=== PATIENT | female | born 1930 | race Caucasian/White ===

== ENCOUNTER → 2017-08-26 | Day surgery (SDC) | payer MEDICARE, BC ==
[~2017-08-26] MED LIST: ACIDOPHILUS1 EAC2 PO; AMLODIPINE BESY10 MG PO; AMOXICILLIN 50500 MG PO; APAP500 PO; ASPIR 8181 M1 PO; AUGMENTIN 500-1 EACH PO; BACTRIM DS TAB1 EACH PO; BIOFREEZE118 ML TOP; CALCIUM 600 +1 EAC1 PO; CARVEDILOL12.5 MG PO; CLOBETASOL PROP50 M1 TOP; COLACE 100 MG100 MG PO; COREG12.5 MG PO; COZAAR 50 MG TA50 M2 PO; DIGOXIN250 MCG PO; DOXYCYCLINE 10100 MG PO; DULCOLAX5 MG PO; ECOTRIN325 MG PO; FISH OIL 1,001000 M2 PO; FLORASTOR250 MG PO; FUROSEMIDE 40 M40 M1 PO; HUMALOG100 UNIT/1 SUBQ; HUMALOG100 UNIT/2 SQ; JUVEN PACKET1 EACH PO; KEFLEX500 M1 PO; LEVAQUIN 500 M500 M2 PO; LEVEMIR SUBQ; LEVOTHYROXIN0.075 MG PO; LEVOTHYROXINE 0.1 MG PO; LISINOPRIL5 MG PO; MAGOX 400400 MG PO; MELATONIN5 M1 PO; METAMUCIL PAC1 UDPKT PO; MIRALAX17 GM PO; MUCINEX DM TABL1 TA1 PO; MURO-12815 ML/BOT OPHTHALMIC; NITROGLYCERIN0.4 MG SUBLING; NORVASC10 MG PO; NOVOLOG100 UNIT/1 SUBQ; NYAMYC15 GM TOP; OXYGEN INH; OXYGEN MISCELL; PAXIL10 MG; TRAMADOL 50 MG50 MG PO; TYLENOL EXTRA500 MG PO; UNICOMPLEX M TA1 TA1 PO; VANCOMYCIN5 GM/VIAL PO; VITAMIN D1000 UNI1 PO; VITAMIN D2000 UNIT PO; VITAMINC500 PO; ZOCOR20 MG PO
[2017-08-26 06:29] LABS: HEMATOCRIT 37.9 % (37.0-47.0); HEMOGLOBIN 12.4 gm/dL (12.0-15.0); MCH 27.5 pg (26.0-34.0); MCHC 32.8 g/dL (28.0-37.0); MCV 83.9 fL (80.0-100.0); MPV 7.9 fl. (7.2-11.1); RBC 4.52 mil/uL (4.20-5.00); RDW-CV 18.1 % (10.5-14.5); WBC 7.7 thou/uL (4.0-11.0)
[2017-08-26 06:36] LABS: CALCIUM 9.5 mg/dL (8.5-10.1); CREATININE 0.7 mg/dL (0.6-1.3); POTASSIUM 3.8 mmol/L (3.5-5.1)
[2017-08-26 06:41] LABS: TOTAL BILIRUBIN 0.5 mg/dL (<0.1-1.0); TOTAL PROTEIN 7.1 g/dL (6.4-8.2)
--- NOTE | 2017-08-26 10:39 | NUR ---
WOUND CARE NOTE: WAS CALLED TO PACU POST DEBRIDEMENT OF WOUND. PATIENT WITH WOUND VAC PLACED, BUT NO HOME VAC TO SEND PATIENT HOME WITH. SPOKE WITH DR. CASTRO ON SITUATION, HE HAD WRITTEN ORDERS FOR A VAC TO BE ORDERED FOR SCHEDULED DEBRIDEMENT TODAY. [facility], BUT WAS TRANSFERRED TO WRONG PLACE X2. SPOKE WITH POST ACUTE LIAISON ON SITUATION AND WAS ABLE TO SPEAK WITH [facility]. SPOKE WITH DR. CASTRO AND OBTAINED FURTHER NPWT CLARIFICATION AND GAVE ORDERS TO LIAISON TO ASSIST WITH OBTAINING NPWT. NOTIFIED DR. CASTRO OF NOT HAVING THE SNF'S WOUND VAC IN HOUSE. HE WAS OK WITH REMOVING THE VAC AND PACKING WITH PURACHOL UNTIL THEY COULD PLACE IT AT THE FACILITY. WOUND VAC REMOVED. PACKED WITH 3 PURACHOL AG PLUS AND SECURED WITH BORDERED FOAM. PLACED VAC INTO SOILED UTILITY. UPDATED PACU NURSE ON DISCUSSIONS WITH DR. CASTRO AND LIAISON. PATIENT TOLERATED DRESSING CHANGE WELL.
--- NOTE | 2017-09-16 08:11 | H ---
[place] [address] HISTORY AND PHYSICAL Name: MANUEL GOLDSTEIN Room: [facility]#: [id number] Admission: 08/26/17 Attend Phys: Maricruz Ruiz MD Discharge: Date of : 11/11/[birth year] Report #: [id number] THIS REPORT FOR: //name// CC: Tim Ruiz DATE OF SERVICE: 08/26/2017 ADMITTING DIAGNOSIS: Necrotic gluteal decubitus ulcer. HISTORY OF PRESENT ILLNESS: The patient is an 86-year-old female who presented to [facility] to Dr. Harley and had a pressure ulcer on the left gluteal buttock area and it was in need of operative surgical debridement and wound VAC placement, which could not be performed in the clinic, so she is being prepared for surgery in the operating room. OTHER SIGNIFICANT MEDICAL HISTORY: Congestive heart failure, AFib, coronary artery disease and renal disease. PAST SURGICAL HISTORY: Includes a pacemaker and a coronary artery bypass graft. MEDICATIONS: Her list of medications: Coreg, Ecotrin, Florastor, simvastatin, lisinopril, amlodipine, Lanoxin, insulin, Levemir, fish oil, Lasix, multivitamins, melatonin, zinc oxide ointment, Nitrostat and she was getting Santyl dressings. PHYSICAL EXAMINATION: GENERAL: She is an elderly female in no acute distress. HEAD, EARS, EYES, NOSE AND THROAT: Unremarkable. There were no lesions. NECK: Supple, with no lymphadenopathy. LUNGS: Clear, unlabored. CARDIAC: There is no gallop or murmur. ABDOMEN: Soft, nontender. On her buttock on the left side, there is an open ulcerative wound 3.5 cm in length, 3 cm in width and approximately 2 cm in depth with necrotic tissue, slough, muscle and tendon exposed. EXTREMITIES: No varicosities. No pitting edema. IMPRESSION: Pressure ulcer of the left buttocks with necrotic tissue. PLAN: For surgical debridement and placement of a wound VAC. The patient's son was there for the description of the surgery. I [place] [address] HISTORY AND PHYSICAL Name: MANUEL GOLDSTEIN Room: [facility]#: [id number] Admission: 08/26/17 Attend Phys: Maricruz Ruiz MD Discharge: Date of : 11/11/28 Report #: [id number] benefits of the surgery and answered their questions and they understand and wish to proceed. <ELECTRONICALLY SIGNED> By: Maricruz Ruiz MD 09/16/17 0811 1203 [id number] Ruiz MD /nt
--- NOTE | 2017-09-16 08:11 | OP ---
[address] [address] OPERATIVE REPORT Name: MANUEL GOLDSTEIN Room: [facility]#: [id number] Admission: 08/26/17 Attend Phys: Maricruz Ruiz MD Discharge: Date of : [birth year]/11/[birth year] Report #: [id number] THIS REPORT FOR: //name// CC: Tim Ruiz DATE OF SERVICE: 08/26/2017 PREOPERATIVE DIAGNOSIS: Left gluteal pressure ulcer, dimension is 2.5 x 2.5 x 1.5 cm. POSTOPERATIVE DIAGNOSIS: Left gluteal pressure ulcer, dimension is 2.5 x 2.5 x 1.5 cm. OPERATIVE PROCEDURE: Excisional debridement down to and including tendon of the left gluteal wound after debridement measurements 2.5 x 2.5 x 2 cm. Placement of KCI wound VAC. ANESTHESIA: General endotracheal. OPERATIVE FINDINGS: Necrotic subcutaneous fat and muscle and tendon. DESCRIPTION OF PROCEDURE: After the patient was placed under general endotracheal anesthesia, the patient was placed in a prone position and the left gluteal ____ including ulcer was carefully prepped with Betadine and draped in a sterile fashion. Timeout taken. 1 gram of Ancef was administered. I began with pickups and a #15 scalpel blade, began sharply debriding the edges of the wound bed and debrided down into the ulcer crater, necrotic subcutaneous fat, necrotic muscle and tendon were debrided out of the wound back to healthy bleeding tissue. 100% of the wound bed was debrided and bleeding was controlled with cautery. Once we irrigated the wound with saline, the KCI VAC sponge was brought onto the field, cut to fit the wound bed and packed accordingly and sealed with plastic draping and placed on negative pressure with good seal. Estimated blood loss 1 mL. All sponge, instrument counts correct. The patient was extubated, returned to the PACU in satisfactory condition. <ELECTRONICALLY SIGNED> By: Maricruz Ruiz MD 09/16/1711 0 0840Maricruz Ruiz MD /nt
== END | disposition home or self-care (01) ==
LOC: M.SUR 05:56
PROVIDERS: Surgery
DX: L89.323 Pressure ulcer of left buttock, stage 3 (principal); L89.329 Pressure ulcer of left buttock, unspecified stage; I50.9 Heart failure, unspecified; I48.91 Unspecified atrial fibrillation; I25.10 Atherosclerotic heart disease of native coronary artery without angina pectoris; N28.9 Disorder of kidney and ureter, unspecified; Z79.4 Long term (current) use of insulin; Z95.1 Presence of aortocoronary bypass graft; Z79.899 Other long term (current) drug therapy

== ENCOUNTER → 2017-10-29 | Outpatient (CLI) | payer MEDICARE, BC ==
[~2017-10-29] VITALS: Ht 172.7 cm; Wt 68.0 kg
[2017-10-29 10:37] VITALS: BP 101/48
== END ==
LOC: M.WC 00:04 → M.ERS 00:04 → M.WC 09:00
DX: L03.211 Cellulitis of face (principal); I50.9 Heart failure, unspecified; I48.91 Unspecified atrial fibrillation; I25.10 Atherosclerotic heart disease of native coronary artery without angina pectoris; I25.2 Old myocardial infarction; Z95.0 Presence of cardiac pacemaker; Z95.1 Presence of aortocoronary bypass graft

== ENCOUNTER → 2017-11-04 | Outpatient (CLI) | payer MEDICARE, BC ==
--- NOTE | 2017-11-06 16:04 | CON ---
[address] [address] CONSULTATION Name: MANUEL GOLDSTEIN Room: [facility] Jayant#: [id number] Admission: 11/04/17 Attend Phys: Maricruz Ruiz MD Discharge: Date of : 11/11/[birth year] Report #: [id number] THIS REPORT FOR: //name// CC: Tim Ruiz DATE OF SERVICE: 11/06/2017 ATTENDING PHYSICIAN: Maricruz Ruiz MD Seen at the wound care center at [facility] for left ischial ulceration. Chart reviewed, the patient examined. The patient returns today in followup for ongoing care for left ischial ulceration. She states overall there is a little change from her standpoint. The degree of pain and discomfort has been moderate. She is able to offload the site. She denies any fevers or chills. On examination, the wound appears to have somewhat less depth. On probing, there is no exposed or bone that is apparent exposed the wound. Left ischial decubitus ulcer. We will continue current approach from an infectious standpoint. She has been on some systemic antibiotics, had a diagnosis with a facial cellulitis for which she has been on trimethoprim and sulfamethoxazole as well as cephalexin, complete fairly short period of time and optimize her nutritional status, offload the site. We would see her back in 2 weeks. <ELECTRONICALLY SIGNED> By: Jonh Rose MD 11/06/17 1604 0645 [id number] kristen Hicks
== END ==
LOC: M.WC 00:58
DX: L89.323 Pressure ulcer of left buttock, stage 3 (principal); L03.211 Cellulitis of face; R21 Rash and other nonspecific skin eruption; I50.9 Heart failure, unspecified; I48.91 Unspecified atrial fibrillation; I25.10 Atherosclerotic heart disease of native coronary artery without angina pectoris; I25.2 Old myocardial infarction; Z87.891 Personal history of nicotine dependence; Z95.1 Presence of aortocoronary bypass graft

== ENCOUNTER → 2017-11-18 | Outpatient (CLI) | payer MEDICARE, BC ==
--- NOTE | 2017-11-20 11:57 | CON ---
[address] [address] CONSULTATION Name: MANUEL GOLDSTEIN Room: [facility] Mullins#: [id number] Admission: 11/18/17 Attend Phys: Maricruz Ruiz MD Discharge: Date of : 11/11/[birth year] Report #: [id number] THIS REPORT FOR: //name// CC: Tim Ruiz DATE OF SERVICE: 11/18/2017 ATTENDING PHYSICIAN: Dr. Maricruz Ruiz. REASON FOR EVALUATION: Followup ischial wound complicated by infection. She returns in followup having been seen roughly 3 weeks ago. At that point, she had ongoing issues with eye infection. She was prescribed antibiotics consisting of Bactrim as well as cephalexin. She has completed that course and subsequently has cleared the infection related to her eye and ongoing wound care with the ischial site. On examination, there is very little inflammation superficially. On probing, it does extend up to 3 cm, although there is no evidence of exposed bone at this point. She generally states she feels fair although remains weak. Her appetite is still only fair. Chronic ischial wound. At this point, we will not extend the antibiotics. I did instruct her to call if she thought there was any concern about relapsing or recurrent infection at this point. I did discuss with Dr. Ruiz who was in agreement. We will be available as needed. <ELECTRONICALLY SIGNED> By: Jonh Rose MD 11/20/17 1157 1552 [id number] Rose MD /raquel
== END ==
LOC: M.WC 01:22
DX: L89.323 Pressure ulcer of left buttock, stage 3 (principal); R21 Rash and other nonspecific skin eruption; I50.9 Heart failure, unspecified; I48.91 Unspecified atrial fibrillation; I25.10 Atherosclerotic heart disease of native coronary artery without angina pectoris; I25.2 Old myocardial infarction; Z87.891 Personal history of nicotine dependence; Z95.1 Presence of aortocoronary bypass graft; Z95.0 Presence of cardiac pacemaker

== ENCOUNTER → 2017-11-25 | Outpatient (CLI) | payer MEDICARE, BC | LOC: M.WC 00:58 | DX: L89.323 Pressure ulcer of left buttock, stage 3 (principal); I50.9 Heart failure, unspecified; I48.91 Unspecified atrial fibrillation; I25.10 Atherosclerotic heart disease of native coronary artery without angina pectoris; I25.2 Old myocardial infarction; Z87.891 Personal history of nicotine dependence; Z95.1 Presence of aortocoronary bypass graft; Z95.0 Presence of cardiac pacemaker ==

== ENCOUNTER → 2017-12-02 | Outpatient (CLI) | payer MEDICARE, BC | LOC: M.WC 09:00 | DX: L89.323 Pressure ulcer of left buttock, stage 3 (principal); I50.9 Heart failure, unspecified; I48.91 Unspecified atrial fibrillation; I25.10 Atherosclerotic heart disease of native coronary artery without angina pectoris; I25.2 Old myocardial infarction; Z87.891 Personal history of nicotine dependence; Z95.1 Presence of aortocoronary bypass graft; Z95.0 Presence of cardiac pacemaker ==

== ENCOUNTER → 2017-12-09 | Outpatient (CLI) | payer MEDICARE, BC | LOC: M.WC 00:53 | DX: L89.323 Pressure ulcer of left buttock, stage 3 (principal); R21 Rash and other nonspecific skin eruption; I50.9 Heart failure, unspecified; I48.91 Unspecified atrial fibrillation; I25.2 Old myocardial infarction; Z87.891 Personal history of nicotine dependence; Z95.1 Presence of aortocoronary bypass graft ==

== ENCOUNTER → 2017-12-16 | Outpatient (CLI) | payer MEDICARE, BC ==
[2017-12-16 10:31] LABS: ABSOLUTE EOSINOPHILS 0.1 thou/uL (0.0-0.7); ABSOLUTE LYMPHOCYTES 0.7 thou/uL (0.8-5.3); ABSOLUTE MONOCYTES 0.9 thou/uL (0.0-1.2); HEMOGLOBIN 10.4 gm/dL (12.0-15.0); WBC 5.3 thou/uL (4.0-11.0)
[2017-12-16 10:34] LABS: ABSOLUTE BASOPHILS 0.1 thou/uL (0.0-0.2); ABSOLUTE NEUTROPHILS 3.5 thou/uL (1.6-8.1); HEMATOCRIT 31.1 % (37.0-47.0); LYMPHOCYTES 13.8 %; MCHC 33.5 g/dL (28.0-37.0); MCV 83.7 fL (80.0-100.0); MPV 8.2 fl. (7.2-11.1); NUCLEATED RBCS 0 /100WBC; PLATELET COUNT* 256 thou/uL (150-400); POLYS 66.2 %; RBC 3.71 mil/uL (4.20-5.00)
[2017-12-16 10:36] LABS: CALCIUM 8.7 mg/dL (8.5-10.1); CREATININE 0.8 mg/dL (0.6-1.3); POTASSIUM 3.8 mmol/L (3.5-5.1)
[2017-12-16 11:34] LABS: ESR (SEDRATE) 52 mm/hr (0-30)
== END ==
LOC: M.WC 01:51
PROVIDERS: Surgery
DX: L89.323 Pressure ulcer of left buttock, stage 3 (principal); R21 Rash and other nonspecific skin eruption; I50.9 Heart failure, unspecified; I48.91 Unspecified atrial fibrillation; I25.10 Atherosclerotic heart disease of native coronary artery without angina pectoris; I25.2 Old myocardial infarction; Z87.891 Personal history of nicotine dependence; Z95.1 Presence of aortocoronary bypass graft; Z95.0 Presence of cardiac pacemaker

== ENCOUNTER → 2017-12-23 | Outpatient (CLI) | payer MEDICARE, BC ==
--- NOTE | 2017-12-25 12:12 | CON ---
[address] [address] CONSULTATION Name: MANUEL GOLDSTEIN Room: [facility] Jayant#: [id number] Admission: 12/23/17 Attend Phys: Maricruz Ruiz MD Discharge: Date of : [birth year]/11/[birth year] Report #: [id number] THIS REPORT FOR: //name// CC: Joseph Ruiz DATE OF SERVICE: 12/23/2017 ATTENDING PHYSICIAN: Maricruz Ruiz MD REASON FOR EVALUATION: Chronic sacral decubitus ulcer. HISTORY OF PRESENT ILLNESS: The patient returns in followup. She has had a longstanding pressure related sacral ulcer, right side perivertebral site. On examination today, Dr. Ruiz appreciated that although even as recent as last week there was no exposed bone, there is today. He feels the chronicity of the wound suggests probable chronic osteomyelitis. He did do a biopsy of the bone utilizing a rongeur and sent that for culture. Apparently, she is not a candidate for an MRI due to pacemaker. It is notable that she has had some intermittent fevers, although she is afebrile this day. She states her appetite has been only fair. She denies significant amount of pain typically unless it is being debrided. ASSESSMENT AND PLAN: Suspected chronic osteomyelitis. Discussed with Dr. Ruiz. Plan is to go ahead and place a PICC line. We will await culture results, start her on parenteral antimicrobial therapy, do some weekly labs. In the interim, he will continue bedside debridements. There is a real concern that she is significantly high risk surgical candidate. We will see how she progresses clinically. I will see her in 1 week. <ELECTRONICALLY SIGNED> By: Jonh Rose MD 12/25/17 1212 1607 2046Jomalcolm Rose MD /nt
== END ==
LOC: M.WC 01:55
DX: L89.323 Pressure ulcer of left buttock, stage 3 (principal); I50.9 Heart failure, unspecified; I48.91 Unspecified atrial fibrillation; I25.10 Atherosclerotic heart disease of native coronary artery without angina pectoris; I25.2 Old myocardial infarction; Z87.891 Personal history of nicotine dependence; Z95.0 Presence of cardiac pacemaker; Z95.1 Presence of aortocoronary bypass graft

== ENCOUNTER → 2017-12-25 | Outpatient (CLI) | payer MEDICARE, BC ==
[2017-12-25 07:53] VITALS: BP 112/56
[2017-12-25 10:00] VITALS: BP 118/52
--- NOTE | 2017-12-25 12:19 | NUR ---
ARRIVED PER WHEELCHAIR FROM IR POST PICC PLACEMENT. ASSISTED TO RECLINER AND MADE COMFORTABLE. PICC TO LEFT UPPER ARM INTACT AND PATENT. SPOKE WITH DR. GEORGE AND NEW ORDER RECIEVED TO ADMINISTER VANCOMYCIN AND LABS. SPOKE WITH DEVANG AT [facility] AND REPORT GIVE. INFUSION COMPLETED AND TOLERATED WELL. STAFF FROM SNF STAYED [facility] PT DURING INFUSION. DISCHARGE REVIEWED. DENEIS QUESTIONS OR NEEDS AT DISCHARGE.
== END | disposition home or self-care (01) ==
LOC: M.INT 07:11 → M.INFUS 13:00
DX: Z45.2 Encounter for adjustment and management of vascular access device (principal); I48.91 Unspecified atrial fibrillation; Z79.899 Other long term (current) drug therapy; Z79.82 Long term (current) use of aspirin; Z79.4 Long term (current) use of insulin; Z79.01 Long term (current) use of anticoagulants

== ENCOUNTER → 2017-12-30 | Outpatient (CLI) | payer MEDICARE, BC ==
--- NOTE | 2018-01-01 12:11 | CON ---
[address] [address] CONSULTATION Name: MANUEL GOLDSTEIN Room: [facility] Mullins#: [id number] Admission: 12/30/17 Attend Phys: Maricruz Ruiz MD Discharge: Date of : 11/11/[birth year] Report #: [id number] THIS REPORT FOR: //name// CC: Joseph Ruiz DATE OF SERVICE: 12/30/2017 ATTENDING PHYSICIAN: Maricruz Ruiz MD Here for a followup of sacral osteomyelitis, chronic wound. HISTORY OF PRESENT ILLNESS: The patient returns today in followup, having completed about 5 days of parenteral therapy with vancomycin. Previous culture was confirmed to be MRSA. This was a bone biopsy. She apparently is tolerating the treatment without difficulty. At this point, she does admit to some mild decrease in her appetite, which may be secondary to adverse drug effect. Labs are pending. Denies pulmonary or gastrointestinal related complaints. PHYSICAL EXAMINATION: The wound appears to be fairly bland. The superficial opening is smaller, although it opens into a cavity. Its depth is really unchanged, is not overtly inflamed. ASSESSMENT AND PLAN: Chronic osteomyelitis. At this point, we will maintain the current approach. Continue vancomycin, planned 6-week course. We will get typically weekly labs. I will see her in 1 week. <ELECTRONICALLY SIGNED> By: Jonh Rose MD 01/01/18 1211 1527 [id number] Rose MD /raquel
== END ==
LOC: M.WC 00:07
DX: L89.323 Pressure ulcer of left buttock, stage 3 (principal); R21 Rash and other nonspecific skin eruption; I50.9 Heart failure, unspecified; I48.91 Unspecified atrial fibrillation; I25.10 Atherosclerotic heart disease of native coronary artery without angina pectoris; I25.2 Old myocardial infarction; Z87.891 Personal history of nicotine dependence; Z95.1 Presence of aortocoronary bypass graft

== ENCOUNTER → 2018-01-06 | Outpatient (CLI) | payer MEDICARE, BC ==
--- NOTE | 2018-01-08 10:42 | CON ---
[address] [address] CONSULTATION Name: MANUEL GOLDSTEIN Room: [facility] Jayant#: [id number] Admission: 01/06/18 Attend Phys: Maricruz Ruiz MD Discharge: Date of : 11/11/[birth year] Report #: [id number] THIS REPORT FOR: //name// CC: Joseph Ruiz DATE OF SERVICE: 01/06/2018 INFECTIOUS DISEASE CONSULTATION ATTENDING PHYSICIAN: Maricruz Ruiz MD HISTORY OF PRESENT ILLNESS: Here for followup of chronic ulceration, left medial buttock, likely osteomyelitis. The patient returns in followup. She does on a weekly basis ongoing wound care, and roughly 3 weeks ago, did undergo partial bedside ostectomy of the exposed bone, confirmed to have osteomyelitis, has been on parenteral therapy during that interval. At this point, she denies significant amount of pain. The wound itself is only partially less deep, although through probing, it is not clear that there is any exposed bone at this point. ASSESSMENT AND PLAN: Chronic osteomyelitis. We will continue the current approach including the parenteral vancomycin as well as weekly labs at least additional 3 weeks. We will continue to follow on weekly basis. She is seeing Dr. Ruiz who is doing debridements. <ELECTRONICALLY SIGNED> By: Jonh Rose MD 01/08/18 1042 05 [id number] Rose MD /nt
== END ==
LOC: M.WC 04:52
DX: L89.323 Pressure ulcer of left buttock, stage 3 (principal); R21 Rash and other nonspecific skin eruption; I50.9 Heart failure, unspecified; I48.91 Unspecified atrial fibrillation; I25.10 Atherosclerotic heart disease of native coronary artery without angina pectoris; I25.2 Old myocardial infarction; Z87.891 Personal history of nicotine dependence; Z95.1 Presence of aortocoronary bypass graft

== ENCOUNTER → 2018-01-13 | Outpatient (CLI) | payer MEDICARE, BC ==
--- NOTE | 2018-01-15 11:08 | CON ---
[address] [address] CONSULTATION Name: MANUEL GOLDSTEIN Room: [facility] Saba#: [id number] Admission: 01/13/18 Attend Phys: Maricruz Ruiz MD Discharge: Date of : [birth year]/11/[birth year] Report #: [id number] THIS REPORT FOR: //name// CC: Joseph Ruiz DATE OF SERVICE: 01/13/2018 ATTENDING PHYSICIAN: Dr. Maricruz Ruiz. REASON FOR EVALUATION: To follow up sacral decubitus ulcer with suspected osteomyelitis. HISTORY OF PRESENT ILLNESS: Chart reviewed, patient examined. The patient returns in followup. She has been seen on a weekly basis, had started antibiotics roughly 3-4 weeks ago parenterally due to positive culture and probing the wound confirmed bone exposure. This was biopsied. Growth of MRSA. She was placed on vancomycin. She has actually made some progress in terms of the wound, is now a shallow where it has no bone exposed on efforts to probing including multiple persons. She has overall some degree of pain, although it has lessened. She does have some issues with her appetite and certainly raises question of adverse drug effect, but overall she is a little more animated. I was not able to see the wound today since she was already dressed, but per the staff nurse, it had improved appearance and decreased overall inflammation, slightly less drainage. Chronic osteomyelitis. We will continue this approach as prescribed, additional 2-3 weeks. We will see her on a weekly basis. Continue to optimize her nutritional status, offload the site. <ELECTRONICALLY SIGNED> By: Jonh Rose MD 01/15/18 1108 0852 0937Josejamel Rose MD /nt
== END ==
LOC: M.WC 00:48
DX: L89.324 Pressure ulcer of left buttock, stage 4 (principal); L98.411 Non-pressure chronic ulcer of buttock limited to breakdown of skin; R21 Rash and other nonspecific skin eruption; I50.9 Heart failure, unspecified; I48.91 Unspecified atrial fibrillation; I25.10 Atherosclerotic heart disease of native coronary artery without angina pectoris; I25.2 Old myocardial infarction; Z87.891 Personal history of nicotine dependence; Z95.1 Presence of aortocoronary bypass graft; Z95.0 Presence of cardiac pacemaker

== ENCOUNTER → 2018-01-27 | Outpatient (CLI) | payer MEDICARE, BC ==
--- NOTE | 2018-01-29 12:32 | CON ---
[address] [address] CONSULTATION Name: MANUEL GOLDSTEIN Room: [facility] Mullins#: [id number] Admission: 01/27/18 Attend Phys: Maricruz Ruiz MD Discharge: Date of : 11/11/[birth year] Report #: [id number] THIS REPORT FOR: //name// CC: Joseph Ruiz DATE OF SERVICE: 01/27/2018 INFECTIOUS DISEASE CONSULTATION FOLLOWUP ATTENDING PHYSICIAN: Dr. Maricruz Ruiz. REASON FOR EVALUATION: Here for followup of ischial ulcer complicated by exposed bone and likely chronic osteomyelitis. HISTORY OF PRESENT ILLNESS: The patient continues to have evidence of overall deterioration in my estimation. She is less engaged. She denies significant amount of pain to this point. She states her appetite has been poor, not eating. PHYSICAL EXAMINATION: On evaluation of the wound, it actually has minimal inflammation, although on probing, there is concern about possible bone exposure, although there is disagreement. ASSESSMENT AND PLAN: Chronic ischial wound. She has completed roughly 5 weeks of parenteral therapy of the planned 6-week course. We will continue that. Weekly labs. Part of the anorexia may be due to the antibiotics as well; it should be mindful. Likely, we will switch to oral therapy, perhaps more of a chronic suppressive mode. I am not encouraged by likelihood of healing at this point given several factors. <ELECTRONICALLY SIGNED> By: Jonh Rose MD 01/29/18 1232 0916 [id number] Rose MD /raquel
== END ==
LOC: M.WC 01:18
DX: L89.323 Pressure ulcer of left buttock, stage 3 (principal); R21 Rash and other nonspecific skin eruption; I50.9 Heart failure, unspecified; I48.91 Unspecified atrial fibrillation; I25.10 Atherosclerotic heart disease of native coronary artery without angina pectoris; I25.2 Old myocardial infarction; Z87.891 Personal history of nicotine dependence; Z95.1 Presence of aortocoronary bypass graft; Z95.0 Presence of cardiac pacemaker

== ENCOUNTER → 2018-02-03 | Outpatient (CLI) | payer MEDICARE, BC ==
--- NOTE | 2018-02-05 12:25 | CON ---
[address] [address] CONSULTATION Name: MANUEL GOLDSTEIN Room: [facility] Saba#: [id number] Admission: 02/03/18 Attend Phys: Maricruz Ruiz MD Discharge: Date of : 11/11/[birth year] Report #: [id number] THIS REPORT FOR: //name// CC: Joseph Ruiz DATE OF SERVICE: 02/03/2018 ATTENDING PHYSICIAN: Maricruz Ruiz MD Here for followup of chronic ischial ulceration complicated by chronic osteomyelitis. She returns today in followup. She denies significant amount of pain at this point. She has had a diminished appetite overall and some overall general deterioration in her clinical status over the course of the last several months in particular the last few weeks. She has completed 6 weeks of parenteral therapy with vancomycin for culture proven MRSA isolated from a deep culture from the site collected by Dr. Ruiz. On examination, the wound is fairly bland appearing. It is smaller. It is narrow ____ depth and suspect continues to communicate with bone. Chronic osteomyelitis setting involving the ischium. We will transition to oral antibiotics for long-term chronic suppressive care. Ideally, she will tolerate these without significant adverse drug effect. We will have to monitor labs on an intermittent basis. She was encouraged to optimize her nutritional status. She does appreciate the need to again continue work with physical therapy. I did go ahead and remove her PICC line as well. <ELECTRONICALLY SIGNED> By: Jonh Rose MD 02/05/18 1225 0845 [id number] Rose MD /raquel
== END ==
LOC: M.WC 02:07
DX: L89.323 Pressure ulcer of left buttock, stage 3 (principal); I50.9 Heart failure, unspecified; I48.91 Unspecified atrial fibrillation; I25.10 Atherosclerotic heart disease of native coronary artery without angina pectoris; I25.2 Old myocardial infarction; Z87.891 Personal history of nicotine dependence; Z95.1 Presence of aortocoronary bypass graft; Z95.0 Presence of cardiac pacemaker

== ENCOUNTER → 2018-03-03 | Outpatient (CLI) | payer MEDICARE, BC ==
--- NOTE | 2018-03-06 14:38 | CON ---
[address] [address] CONSULTATION Name: MANUEL GOLDSTEIN Room: [facility] Jayant#: [id number] Admission: 03/03/18 Attend Phys: Maricruz Ruiz MD Discharge: Date of : 11/11/[birth year] Report #: [id number] THIS REPORT FOR: //name// CC: Joseph Ruiz DATE OF SERVICE: 03/03/2018 INFECTIOUS DISEASE CONSULTATION DATE OF VISIT TO WOUND CARE CENTER: 03/03/2018. ATTENDING PHYSICIAN: Dr. Maricruz Ruiz. HISTORY OF PRESENT ILLNESS: The patient returns today in followup for chronic ischial ulceration, likely has chronic osteomyelitis, which has overall little change. Denies any systemic illness. It is not clear with her appetite may be it has marginally improved. She has been on essentially chronic suppressive therapy at this point. On examination, the canal is somewhat narrow or it still has a cavity at the base and probably there is exposed bone. 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 We will continue current approach with chronic suppressive therapy. Did discuss with Dr. Ruiz. He noted other option would be to excise the sinus tract and debride the base of the wound including bone; however, if left with a rather large defect, it again would be difficult to heal. Noted she is evidently undernourished, I am not sure that is going to change dramatically at this point. We will see her in 1 month's time. Continue the antibiotic approach. <ELECTRONICALLY SIGNED> By: Jonh Rose MD 03/06/18 1438 1446 [id number] Rose MD /nt
== END ==
LOC: M.WC 00:02
DX: L89.324 Pressure ulcer of left buttock, stage 4 (principal); I50.9 Heart failure, unspecified; I48.91 Unspecified atrial fibrillation; I25.10 Atherosclerotic heart disease of native coronary artery without angina pectoris; I25.2 Old myocardial infarction; R21 Rash and other nonspecific skin eruption; Z87.891 Personal history of nicotine dependence; Z95.1 Presence of aortocoronary bypass graft; Z95.0 Presence of cardiac pacemaker

== ENCOUNTER → 2018-03-31 | Outpatient (CLI) | payer MEDICARE, BC ==
[2018-03-31 09:51] LABS: ABSOLUTE BASOPHILS 0.1 thou/uL (0.0-0.2); ABSOLUTE EOSINOPHILS 0.1 thou/uL (0.0-0.7); ABSOLUTE LYMPHOCYTES 1.1 thou/uL (0.8-5.3); ABSOLUTE MONOCYTES 0.7 thou/uL (0.0-1.2); ABSOLUTE NEUTROPHILS 4.5 thou/uL (1.6-8.1); BASOPHILS 1.1 %; EOSINOPHILS 1.6 %; HEMATOCRIT 36.3 % (37.0-47.0); HEMOGLOBIN 11.9 gm/dL (12.0-15.0); LYMPHOCYTES 16.8 %; MCH 26.2 pg (26.0-34.0); MCHC 32.7 g/dL (28.0-37.0); MCV 80.3 fL (80.0-100.0); MONOCYTES 10.4 %; MPV 9.3 fl. (7.2-11.1); NUCLEATED RBCS 0 /100WBC; PLATELET COUNT* 206 thou/uL (150-400); POLYS 70.1 %; RBC 4.52 mil/uL (4.20-5.00); WBC 6.4 thou/uL (4.0-11.0)
[2018-03-31 09:54] LABS: CALCIUM 9.2 mg/dL (8.5-10.1); CREATININE 0.9 mg/dL (0.6-1.3); POTASSIUM 3.5 mmol/L (3.5-5.1)
[2018-03-31 09:59] LABS: ALBUMIN 2.6 g/dL (3.4-5.0); TOTAL BILIRUBIN 0.5 mg/dL (<0.1-1.0); TOTAL PROTEIN 6.5 g/dL (6.4-8.2)
[2018-03-31 11:31] LABS: ESR (SEDRATE) 34 mm/hr (0-30)
--- NOTE | 2018-04-03 11:52 | CON ---
[address] [address] CONSULTATION Name: MANUEL GOLDSTEIN Room: [facility] Jayant#: [id number] Admission: 03/31/18 Attend Phys: Maricruz Ruiz MD Discharge: Date of : 11/11/[birth year] Report #: [id number] THIS REPORT FOR: //name// CC: Joseph Ruiz DATE OF SERVICE: 03/31/2018 ATTENDING PHYSICIAN: Maricruz Ruiz MD HISTORY OF PRESENT ILLNESS: Here for a followup, seen in Wound Care Center, chronic wound, sacral decubitus ulcer, likely has underlying chronic osteomyelitis. She is on chronic suppressive therapy at this point. On evaluation, the wound appears to be stable. The overall size of the cavity is decreased. There is not significant amount of purulence noted. She denies significant amount of pain. She is good about offloading. She still continues to show evidence of under nourishment. Discussed with Dr. Ruiz. At this point, there is no plan to do any surgical procedure. He is satisfied with the overall response to our approach, knowing that may well not heal completely, although she is reasonably comfortable with it. Chronic osteomyelitis. At this point, would continue chronic suppressive therapy. She seems to be tolerating it without significant adverse drug effect. She was encouraged to optimize her nutritional status. I am not hopeful that she will walk again at this point but in the event she gained some strength, may be hopeful. See her in 1 month. <ELECTRONICALLY SIGNED> By: Jonh Rose MD 04/03/18 1152 1651 0226Josejamel Rose MD /nt
== END ==
LOC: M.WC 00:47
PROVIDERS: Surgery
DX: L89.323 Pressure ulcer of left buttock, stage 3 (principal); N28.9 Disorder of kidney and ureter, unspecified; E44.0 Moderate protein-calorie malnutrition; I48.91 Unspecified atrial fibrillation; I25.10 Atherosclerotic heart disease of native coronary artery without angina pectoris; I25.2 Old myocardial infarction; I50.9 Heart failure, unspecified; Z87.891 Personal history of nicotine dependence; Z95.1 Presence of aortocoronary bypass graft; Z95.0 Presence of cardiac pacemaker

== ENCOUNTER → 2018-04-28 | Outpatient (CLI) | payer MEDICARE, BC ==
--- NOTE | 2018-05-01 11:42 | CON ---
[address] [address] CONSULTATION Name: MANUEL GOLDSTEIN [id number] Admission: 04/28/18 Attend Phys: Maricruz Ruiz MD Discharge: Date of : 11/11/[birth year] Report #: [id number] THIS REPORT FOR: //name// CC: Joseph Ruiz DATE OF SERVICE: 04/28/2018 Seen in the Wound Care Center. ATTENDING PHYSICIAN: Maricruz Ruiz MD REASON FOR EVALUATION: Ongoing issues with sacral decubitus ulcer with suspected underlying osteomyelitis, undergoing a chronic suppressive therapy at this point due to a poor surgical candidate. She has generally been clinically about the same. She states she is eating, perhaps somewhat better. Does have intermittent pain, especially with direct pressure. She is lying on her back. She clearly is less animated recently. States she is just tired. Evaluation of the wound measurements appeared to be a little changed. There are no overt change overall in the appearance superficially with a minimal degree of inflammation noted. Chronic decubitus ulcer. We will continue chronic suppressive therapy with minocycline. I will see her back in 4 weeks. <ELECTRONICALLY SIGNED> By: Jonh Rose MD 05/01/18 1142 1309 1825Jomalcolm Rose MD /nt
== END ==
LOC: M.WC 00:08
DX: L89.323 Pressure ulcer of left buttock, stage 3 (principal); N28.9 Disorder of kidney and ureter, unspecified; E44.0 Moderate protein-calorie malnutrition; I48.91 Unspecified atrial fibrillation; I25.10 Atherosclerotic heart disease of native coronary artery without angina pectoris; I25.2 Old myocardial infarction; I50.9 Heart failure, unspecified; Z87.891 Personal history of nicotine dependence; Z95.1 Presence of aortocoronary bypass graft

== ENCOUNTER → 2018-05-26 | Outpatient (CLI) | payer MEDICARE, BC | LOC: M.WC 01:13 | DX: L89.323 Pressure ulcer of left buttock, stage 3 (principal); E44.0 Moderate protein-calorie malnutrition; N28.9 Disorder of kidney and ureter, unspecified; I50.9 Heart failure, unspecified; I48.91 Unspecified atrial fibrillation; I25.10 Atherosclerotic heart disease of native coronary artery without angina pectoris; I25.2 Old myocardial infarction; Z87.891 Personal history of nicotine dependence; Z95.1 Presence of aortocoronary bypass graft; Z95.0 Presence of cardiac pacemaker ==

== ENCOUNTER → 2018-06-23 | Outpatient (CLI) | payer MEDICARE, BC ==
[2018-06-23 10:04] LABS: ABSOLUTE BASOPHILS 0.1 thou/uL (0.0-0.2); ABSOLUTE EOSINOPHILS 0.1 thou/uL (0.0-0.7); ABSOLUTE LYMPHOCYTES 1.1 thou/uL (0.8-5.3); ABSOLUTE MONOCYTES 0.5 thou/uL (0.0-1.2); EOSINOPHILS 1.7 %; HEMATOCRIT 35.4 % (37.0-47.0); HEMOGLOBIN 11.8 gm/dL (12.0-15.0); LYMPHOCYTES 16.5 %; MCH 29.3 pg (26.0-34.0); MCHC 33.2 g/dL (28.0-37.0); MCV 88.3 fL (80.0-100.0); MONOCYTES 7.9 %; NUCLEATED RBCS 0 /100WBC; PLATELET COUNT* 277 thou/uL (150-400); POLYS 72.9 %; RBC 4.01 mil/uL (4.20-5.00); RDW-CV 15.8 % (10.5-14.5); WBC 6.9 thou/uL (4.0-11.0)
[2018-06-23 10:16] LABS: CALCIUM 9.3 mg/dL (8.5-10.1); CREATININE 0.9 mg/dL (0.6-1.3); POTASSIUM 3.5 mmol/L (3.5-5.1)
[2018-06-23 10:21] LABS: ALBUMIN 2.8 g/dL (3.4-5.0); TOTAL BILIRUBIN 0.6 mg/dL (<0.1-1.0); TOTAL PROTEIN 7.1 g/dL (6.4-8.2)
--- NOTE | 2018-06-26 12:06 | CON ---
[address] [address] CONSULTATION Name: MANUEL GOLDSTEIN Room: [facility]#: [id number] Admission: 06/23/18 Attend Phys: Maricruz Ruiz MD Discharge: Date of : 11/11/[birth year] Report #: [id number] THIS REPORT FOR: //name// CC: Joseph Ruiz DATE OF SERVICE: 06/23/2018 INFECTIOUS DISEASE FOLLOWUP Seen in the wound care center by Dr. Maricruz Ruiz. REASON FOR CONSULTATION: Here for chronic sacral decubitus ulcer. HISTORY OF PRESENT ILLNESS: The patient returns in followup. She appears quite frail, perhaps more so than usual. She was talkative. She denies any particular pain associated with the site. It is unclear if she has had any fevers. She states her appetite is only fair. On inspection, the wound appears fairly bland superficially, was probed, there is small opening at this point, difficult to ascertain base of the cavity. ASSESSMENT AND PLAN: Chronic sacral decubitus ulcer. At this point, is felt not to be a surgical candidate. We will continue approach of chronic suppressive therapy. I think we can cut back to once daily with minocycline 100 mg from the previous twice daily. I am concerned about possible adverse drug effects, particularly anorexia. She does appear to be depressed as well, which would not be unusual. We will repeat some labs on a fairly regular basis to assure no occult dysfunction. <ELECTRONICALLY SIGNED> By: Jonh Rose MD 06/26/18 1206 0746 1705Joseph Chriss Rose MD /nt
== END ==
LOC: M.WC 01:58
PROVIDERS: Specialist
DX: L89.323 Pressure ulcer of left buttock, stage 3 (principal); E44.0 Moderate protein-calorie malnutrition; N28.9 Disorder of kidney and ureter, unspecified; I50.9 Heart failure, unspecified; I48.91 Unspecified atrial fibrillation; I25.10 Atherosclerotic heart disease of native coronary artery without angina pectoris; I25.2 Old myocardial infarction; Z87.891 Personal history of nicotine dependence; Z68.25 Body mass index [BMI] 25.0-25.9, adult

== ENCOUNTER → 2018-07-21 | Outpatient (CLI) | payer MEDICARE, BC | LOC: M.WC 01:22 | DX: L89.323 Pressure ulcer of left buttock, stage 3 (principal); E44.0 Moderate protein-calorie malnutrition; N28.9 Disorder of kidney and ureter, unspecified; M86.68 Other chronic osteomyelitis, other site; I50.9 Heart failure, unspecified; I48.91 Unspecified atrial fibrillation; I25.10 Atherosclerotic heart disease of native coronary artery without angina pectoris; I25.2 Old myocardial infarction; Z87.891 Personal history of nicotine dependence ==

== ENCOUNTER → 2018-08-18 | Outpatient (CLI) | payer MEDICARE, BC ==
--- NOTE | 2018-08-20 12:36 | CON ---
[address] [address] CONSULTATION Name: MANUEL GOLDSTEIN Room: [facility] Jayant#: [id number] Admission: 08/18/18 Attend Phys: Maricruz Ruiz MD Discharge: Date of : [birth year] Report #: [id number] THIS REPORT FOR: //name// CC: Joseph Ruiz DATE OF SERVICE: 08/18/2018 LOCATION: [facility] ATTENDING PHYSICIAN: Dr. Maricruz Ruiz. REASON FOR EVALUATION: Chronic ulceration involving the left buttock, likely underlying deep infection. HISTORY OF PRESENT ILLNESS: Chart reviewed, the patient examined. This 87-year-old I have been following for extended period of time, almost 2 years, has longstanding chronic ulceration with sinus tract. She had been making some progress. Limiting factor certainly is poor nutritional status. She apparently was upright and fell landing on her buttock. On evaluation, the wound appears to be larger than previous. There is not significant amount of surface inflammation. It is more fixed than it had been prior per Dr. Ruiz on his evaluation. She has been on chronic suppressive therapy with minocycline. ASSESSMENT AND PLAN: Chronic ulceration. Dr. Ruiz noted it may be beneficial to excise the sinus tract wound at this point. Discussed with the patient's son. At this point, would not change my current approach and I did ask Dr. Ruiz to get cultures if he does proceed with the excision, which he would like to do in the clinic. We will see her when she returns to clinic. <ELECTRONICALLY SIGNED> By: Jonh Rose MD 08/20/18 1236 1520 [id number] Rose MD /nt
== END ==
LOC: M.WC 01:47
DX: L89.323 Pressure ulcer of left buttock, stage 3 (principal); E44.0 Moderate protein-calorie malnutrition; H54.8 Legal blindness, as defined in USA; I50.9 Heart failure, unspecified; I48.91 Unspecified atrial fibrillation; I25.10 Atherosclerotic heart disease of native coronary artery without angina pectoris; I25.2 Old myocardial infarction; N28.9 Disorder of kidney and ureter, unspecified; Z87.891 Personal history of nicotine dependence

== ENCOUNTER → 2018-08-25 | Outpatient (CLI) | payer MEDICARE, BC | LOC: M.WC 01:25 | DX: L89.323 Pressure ulcer of left buttock, stage 3 (principal); E44.0 Moderate protein-calorie malnutrition; I50.9 Heart failure, unspecified; I48.91 Unspecified atrial fibrillation; I25.10 Atherosclerotic heart disease of native coronary artery without angina pectoris; I25.2 Old myocardial infarction; H54.8 Legal blindness, as defined in USA; N28.9 Disorder of kidney and ureter, unspecified; Z87.891 Personal history of nicotine dependence ==

== ENCOUNTER → 2018-09-15 | Outpatient (CLI) | payer MEDICARE, BC ==
--- NOTE | 2018-09-17 05:49 | CON ---
[address] [address] CONSULTATION Name: GOLDSTEINMANUEL A Room: [facility] MARIVEL Jayant#: [id number] Admission: 09/15/18 Attend Phys: Maricruz Ruiz MD Discharge: Date of : [birth year] Report #: [id number] THIS REPORT FOR: //name// CC: Joseph Anguiano DATE OF SERVICE: 09/15/2018 ATTENDING PHYSICIAN: Maricruz Ruiz MD The patient is seen in [facility]. 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 On examination, the wound appears to be somewhat shallower only superficially. There is no significant evidence of inflammatory signs. She is mildly tender to palpation. I do not see at this point any exposed bone, nor do I feel any palpably. There is some scarring ____ that the tissue is quite immobile. She is currently on once daily minocycline 100 mg, she is taking for chronic suppressive therapy. She continues to lack appetite, it appears that she has lost some weight. Denies any recent fevers. She is not aware of any adverse drug effects. ASSESSMENT AND PLAN: Chronic osteomyelitis. At this point, would continue the current approach as prescribed with chronic suppressive therapy, minocycline 100 mg once daily. She will get intermittent labs. We will see her on a monthly basis. At this point, she seems to be having deterioration in her physical status. Wound care as per Dr. Ruiz. <ELECTRONICALLY SIGNED> By: Jonh Rose MD 09/17/18 0549 1529 [id number] Rose MD /nt
== END ==
LOC: M.WC 01:00
DX: L89.323 Pressure ulcer of left buttock, stage 3 (principal); E44.0 Moderate protein-calorie malnutrition; H54.8 Legal blindness, as defined in USA; I50.9 Heart failure, unspecified; I48.91 Unspecified atrial fibrillation; I25.10 Atherosclerotic heart disease of native coronary artery without angina pectoris; I25.2 Old myocardial infarction; N28.9 Disorder of kidney and ureter, unspecified; Z87.891 Personal history of nicotine dependence

== ENCOUNTER → 2018-10-13 | Outpatient (CLI) | payer MEDICARE, BC ==
--- NOTE | 2018-10-15 12:14 | CON ---
[facility] [address] [place] [address] CONSULTATION Name: MANUEL GOLDSTEIN Room: [facility] MARIVEL Jayant#: [id number] Admission: 10/13/18 Attend Phys: Maricruz Ruiz MD Discharge: Date of : [birth year] Report #: [id number] THIS REPORT FOR: //name// CC: Joseph Anguiano DATE OF SERVICE: 10/13/2018 INFECTIOUS DISEASE CONSULTATION ATTENDING PHYSICIAN: Maricruz Ruiz M.D. 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 The patient returns in followup. She is more or less a palliative care. She has, to this point, had been on chronic suppressive therapy with minocycline. At the last visit 4 weeks ago, she was supposed to continue that. On review of the clinical course, she has been fairly stable. She has marginal appetite and appears to have lost weight. She does have intermittent pain. On examination, the wound appears to be stable. It is more or less a tunnel. Not significant amount of surface inflammation noted. I did review the medications. Apparently, she has been off the minocycline. With her extended period of time, we did call the [facility], who was unaware of the exact dates. 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 At this point, since she has been off the antibiotics and otherwise stable, we will continue wound care in the absence of systemic antibiotics or chronic suppressive therapy. We will see her as needed. <ELECTRONICALLY SIGNED> By: Jonh Rose MD 10/15/18 1214 [id number] Rose MD /nt
== END ==
LOC: M.WC 00:53
DX: L89.323 Pressure ulcer of left buttock, stage 3 (principal); E44.0 Moderate protein-calorie malnutrition; H54.8 Legal blindness, as defined in USA; I50.9 Heart failure, unspecified; I48.91 Unspecified atrial fibrillation; I25.10 Atherosclerotic heart disease of native coronary artery without angina pectoris; I25.2 Old myocardial infarction; N28.9 Disorder of kidney and ureter, unspecified; Z87.891 Personal history of nicotine dependence